=== PATIENT | female | born 1965 | race Caucasian/White ===

== ENCOUNTER 2020-11-08 09:27 | Outpatient (CLI) | payer OTHER, SELFPAY | END 2020-11-08 09:28 | disposition home or self-care (01) | LOC: ANHAUDIO 09:29 | PROVIDERS: PCP Family Medicine; Visit Provider Family Medicine | DX: H91.90 Unspecified hearing loss, unspecified ear (principal) | CPT/HCPCS: 92557; 92567 ==

== ENCOUNTER → 2020-11-08 10:56 | Outpatient (CLI) | payer OTHER, SELFPAY ==
--- NOTE | ~2020-11-08 | XR_ITS ---
EXAMINATION: XR hand RT 2V EXAM DATE: 11/08/2020 11:09 INDICATION: S69.90XA - Unspecified injury of unspecified wrist, hand and finger(s), initial encounter . TECHNIQUE: Frontal and lateral projections of the right hand. There is no prior study for compariso n. FINDINGS: There are no bony erosions identified. The joint spaces are uniform. There are no acute fr actures or dislocations identified. There is no subcutaneous gas. The soft tissue is unremarkable. There are no radiopaque foreign bodies. IMPRESSION: 1. Unremarkable XR hand RT 2V exam. Reviewed, dictated and finalized at location B. 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
== END ==
PROVIDERS: PCP Family Medicine; Visit Provider Physician Assistant
DX: S69.90XA Unspecified injury of unspecified wrist, hand and finger(s), initial encounter (principal)
CPT/HCPCS: 73120

== ENCOUNTER → 2022-10-17 14:00 | Outpatient (CLI) | payer BC, SELFPAY ==
--- NOTE | ~2022-10-17 | MM_ITS ---
EXAMINATION: MM screening evelyn BI w tereza HISTORY: Screening mammogram TECHNIQUE: Craniocaudal and mediolateral oblique 3-D tomosynthesis images were obtained and synthetic 2-D images were generated. CAD analysis was submitted and interpreted. COMPARISON: 12/18/2016, 12/12/2015, 02/16/2013 bilateral screening mammogram examinations BREAST PARENCHYMAL COMPOSITION: There are scattered areas of fibroglandular density. FINDINGS: There is no evidence of suspicious mass, calcification, or architectural distortion to sugg est malignancy in either breast. There has been no suspicious interval change. IMPRESSION: 1. No mammographic evidence of malignancy. 2. Recommend routine screening mammography in one year. BI-RADS Category 1: Negative Reviewed, dictated and finalized at location A. 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
== END ==
PROVIDERS: PCP Physician Assistant; Visit Provider Physician Assistant
DX: Z12.31 Encounter for screening mammogram for malignant neoplasm of breast (principal)
CPT/HCPCS: 77063; 77067

== ENCOUNTER 2024-11-26 00:04 | Day surgery (SDC) | payer BC, SELFPAY ==
[2024-11-05 10:21] VITALS: BMI 31.9
[2024-11-26 09:41] VITALS: BP 132/87; PULSE 94; RESP 17; TEMP 36.3; O2SAT 98; BMI 32.2
--- NOTE | 2024-11-26 09:44 | P.PNAN_ITS ---
Anes - Initial Pre Proc Eval Procedure: Operation Date: 11/26/24 11:00 Proposed Procedures p Screening Colonoscopy - Sherif Crouch MD Date/Time: 11/26/24 09:44 Surgeon: Sherif Crouch MD Pre Op Diagnosis: scrreening malignant neoplasm colon Patient Data Age: 59 Gender: F Height: 1.73 m Weight: 96.2 kg Last Vital Signs Temp 36.3 C L 11/26/24 09:41 Pulse 94 11/26/24 09:41 Resp 17 11/26/24 09:41 BP 132/87 11/26/24 09:41 Pulse Ox 98 11/26/24 09:41 O2 Del Method Room Air 11/26/24 09:41 Allergies Allergy/AdvReac Type Severity Reaction Status Date / Time No Known Allergies Allergy Unknown Verified 11/05/24 10:18 Home Medications ?Medication ?Instructions ?Recorded ?Confirmed ?Type pen needle, diabetic 32 gauge x #100 ea 11/22/22 11/26/24 Rx 5/32 (BD Ultra-Fine Vanita Pen Needle) bupropion HCl 150 mg 24 hr tablet, 150 mg PO DAILY #90 tabs 10/06/24 11/05/24 Rx extended release dulaglutide 0.75 mg/0.5 mL 0.75 mg (0.5 mL) subcut WEEKLY #2 10/14/24 11/05/24 Rx subcutaneous pen injector mL (Trulicity) rosuvastatin 5 mg tablet 5 mg PO DAILY #90 tabs 11/03/24 11/05/24 Rx azelaic acid 15 % topical gel 1 applic topical DAILY 11/05/24 11/05/24 History Patient hx anesthesia problems: none Family hx anesthesia problems: none Results Review: All pre-operative results and documents have been reviewed as part of the pre- operative evaluation. [facility] Past Medical History Medical History Anxiety Hearing loss Normal colonoscopy (~2013) HLD (hyperlipidemia) Depression Family History Family History Other Diabetes mellitus Social History Social History Smoking status: Never smoker Second hand tobacco smoke exposure: No Alcohol intake: current Drinks per week: 1 Substance use: current Substance use type: does not use Other substance usage details: edibles; seldom (once monthly) Lack of Transportation: No Lack of Food: Never True Current Housing: I Have Housing Concerned About Future Housing: No Difficulty Paying Gas/Electric Bills: No Difficulty Paying for Meds: No Currently Unemployed: No Education: Master's Degree or Higher Difficulty w/ Childcare or Family Care: No Living arrangements: with family Occupation/Education: occupation Gender identity (if verbalized by the patient): Female Spiritual care concerns: No Agree to blood products: Yes Anes - Eval Final PreProcedure Day of Procedure 11/26/24 09:44 Patient weight: obese Heart: regular rate and rhythm Lungs: clear to auscultation Airway: Mallampati scale class II Neurological: alert and oriented Last oral intake: >/= 8 hours ASA classification: III Emergent: no Anesthetic plan: proceed Anesthesia type and monitoring: general GIVS and standard monitoring Results Review: All pre-operative results and documents have been reviewed as part of the pre- operative evaluation. Informed Consent: The patient's anesthetic plan and its attendant risks and benefits were discussed with the patient/family/POA. Questions were solicited and answers provided to the satisfaction of the patient/family/POA.
[2024-11-26] MEDS: LACTATED RINGERS 1,000 ML 150 ML IV CONT (09:50)
[2024-11-26 09:53] LABS: Glucose Point of Care 111 mg/dl (65-105)
--- NOTE | 2024-11-26 10:10 | PM.HPGS ---
History of Present Illness History of Present Illness Consent: Risks, benefits, and alternatives have been discussed and questions answered. Patient agrees to proceed with procedure. Chief complaint: scrreening malignant neoplasm colon Narrative: Soumya Dahl is a 59 year old female here for screening colonoscopy, last one 10 years ago Review of Systems Review of Systems: All systems reviewed & are unremarkable except as noted in HPI and below PMFSH Past Medical History Medical History (Updated 11/26/24 @ 10:11 by Sherif Crouch MD) Colon cancer screening Anxiety Hearing loss Normal colonoscopy (~2013) HLD (hyperlipidemia) Depression Family History Family History Other Diabetes mellitus Social History Social History Smoking status: Never smoker Second hand tobacco smoke exposure: No Alcohol intake: current Drinks per week: 1 Substance use: current Substance use type: does not use Other substance usage details: edibles; seldom (once monthly) Lack of Transportation: No Lack of Food: Never True Current Housing: I Have Housing Concerned About Future Housing: No Difficulty Paying Gas/Electric Bills: No Difficulty Paying for Meds: No Currently Unemployed: No Education: Master's Degree or Higher Difficulty w/ Childcare or Family Care: No Living arrangements: with family Occupation/Education: occupation Gender identity (if verbalized by the patient): Female Spiritual care concerns: No Agree to blood products: Yes Meds Home Medications and Allergies Home Medications ?Medication ?Instructions ?Recorded ?Confirmed ?Type pen needle, diabetic 32 gauge x #100 ea 11/22/22 11/26/24 Rx (BD Ultra-Fine Vanita Pen Needle) bupropion HCl 150 mg 24 hr tablet, 150 mg PO DAILY #90 tabs 10/06/24 11/05/24 Rx extended release dulaglutide 0.75 mg/0.5 mL 0.75 mg (0.5 mL) subcut WEEKLY #2 10/14/24 11/05/24 Rx subcutaneous pen injector mL (Trulicity) rosuvastatin 5 mg tablet 5 mg PO DAILY #90 tabs 11/03/24 11/05/24 Rx azelaic acid 15 % topical gel 1 applic topical DAILY 11/05/24 11/05/24 History Allergies Allergy/AdvReac Type Severity Reaction Status Date / Time No Known Allergies Allergy Unknown Verified 11/05/24 10:18 Vital Signs Vital Signs - 24 hr 11/26/24 09:41 Temperature 97.4 F L Pulse Rate 94 Respiratory Rate 17 Blood Pressure 132/87 Pulse Oximetry 98 Oxygen Delivery Room Air Exam Const: General: comfortable and no acute distress HENMT: Face/Nose/Sinus: Normal nares present Eyes: General: appearance normal, both eyes and all related structures Neck: Neck: no JVD Resp: Auscultation: clear to auscultation bilaterally Cardio: Rate: regular rate Rhythm: regular rhythm GI: Inspection: non-distended GI Palp: Yes Soft to palpation Skin: General skin exam: normal color Neuro: General: gait normal Speech: normal speech Extrem: General: normal to inspection Psych: Mental Status: mental status grossly normal Assessment and Plan Assessment and plan (1) Colon cancer screening: Code(s): Z12.11 - Encounter for screening for malignant neoplasm of colon Status: Acute Assessment and Plan: colonoscopy
[2024-11-26 10:30] VITALS: BP 108/72; PULSE 92; RESP 21; O2SAT 98
[2024-11-26 10:40] VITALS: BP 103/65; PULSE 90; RESP 24; O2SAT 98
[2024-11-26 10:50] VITALS: BP 113/70; PULSE 78; RESP 19; O2SAT 99
== END 2024-11-26 11:02 | disposition home or self-care (01) ==
PROVIDERS: PCP Family Medicine; Referring Provider Physician Assistant Medical; Visit Provider Internal Medicine Gastroenterology
PROC: 0DJD8ZZ Inspection of Lower Intestinal Tract, Via Natural or Artificial Opening Endoscopic (ICD-10-PCS; CPT 45378; principal; 2024-11-26 11:00)
DX: Z12.11 Encounter for screening for malignant neoplasm of colon (principal); D12.0 Benign neoplasm of cecum; D12.2 Benign neoplasm of ascending colon; K64.8 Other hemorrhoids; E78.5 Hyperlipidemia, unspecified; F41.9 Anxiety disorder, unspecified; F32.A Depression, unspecified; F12.90 Cannabis use, unspecified, uncomplicated; E66.9 Obesity, unspecified; Z68.32 Body mass index [BMI] 32.0-32.9, adult; Z79.85 Long-term (current) use of injectable non-insulin antidiabetic drugs
CPT/HCPCS: 45380; 45385; 82948; 88305; J2003; J2704; J7120

== ENCOUNTER 2025-10-05 14:29 | Outpatient (CLI) | payer BC, SELFPAY ==
--- NOTE | ~2025-10-05 | MM_ITS ---
EXAMINATION: MM screening evelyn BI w tereza HISTORY: Screening TECHNIQUE: Craniocaudal and mediolateral oblique 3-D tomosynthesis images were obtained and synthetic 2-D images were generated. CAD analysis was submitted and interpreted. COMPARISON: Comparison to multiple prior studies sequentially, with oldest reviewed study dated 12/12/2015. BREAST PARENCHYMAL COMPOSITION: Not dense: There are scattered areas of fibroglandular density. FINDINGS: There is no evidence of suspicious mass, calcification, or architectural distortion to suggest malignancy in either breast. There has been no suspicious interval change. IMPRESSION: 1. No mammographic evidence of malignancy. 2. Recommend routine screening mammography in one year. BI-RADS Category 1: Negative Reviewed, dictated and finalized at location O. 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
== END 2025-10-05 14:30 | disposition home or self-care (01) ==
PROVIDERS: PCP Family Medicine; Visit Provider Family Medicine
DX: Z12.31 Encounter for screening mammogram for malignant neoplasm of breast (principal)
CPT/HCPCS: 77063; 77067